=== PATIENT | female | born 1930 ===

== ENCOUNTER 2016-09-15 05:56 | Observation (INO) | payer MEDICARE ==
[2016-09-15 05:57] VITALS: BMI 25.5
--- NOTE | 2016-09-15 06:19 | ED PDOC ---
Lower Extremity Pain/Injury Time Seen by Provider: 09/15/16 06:11 Chief Complaint (Nursing): Lower Extremity Problem/Injury Chief Complaint (Provider): Knee Effusion History Per: Patient History/Exam Limitations: no limitations Additional Complaint(s): Donna Nobles, an 86 year old female, presents to the ED for same day surgery with Dr. Aldana. The patient sates thats he is here for arthrocentesis of the left knee. Past Medical History Reviewed: Historical Data, Nursing Documentation, Vital Signs Vital Signs: Last Vital Signs Temp 98 F 09/15/16 06:12 Pulse 98 H 09/15/16 06:12 Resp 18 09/15/16 06:12 BP 134/64 09/15/16 06:12 Pulse Ox 98 09/15/16 06:12 - Medical History PMH: Anemia, Anxiety, Arthritis (BACK AND KNEES AND R SHOULDER), Asthma, Cardia Arrhythmia, CHF, COPD, Diabetes, HTN, Hypercholesterolemia, TIA - Surgical History Surgical History: Appendectomy, Coronary Stent, Endoscopy, Pacemaker (2015) - Family History Family History: States: Unknown Family Hx - Immunization History Hx Tetanus Toxoid Vaccination: No Hx Influenza Vaccination: Yes Hx Pneumococcal Vaccination: Yes - Home Medications Home Medications: Ambulatory Orders Medication Instructions Recorded Aspirin [Ecotrin] 325 mg PO DAILY 05/28/14 Ranolazine [Ranexa] 500 mg PO BID 05/28/14 Ticagrelor [Brilinta] 90 mg PO QOD6 05/28/14 Insulin Glargine, Recombina 20 unit SC HS #0 unit 05/30/14 [Lantus] Nitroglycerin [Nitrostat SL Tab] 0.6 mg SL Q5MIN PRN 12/26/14 Dexlansoprazole [Dexilant] 60 mg PO DAILY 09/12/16 Furosemide 40 mg PO DAILY 09/12/16 Repaglinide [Prandin] 2 mg PO DAILY 09/12/16 Rosuvastatin Calcium [Crestor] 20 mg PO HS 09/12/16 Sacubitril/Valsartan [Entresto 24 1 tab PO DAILY 09/12/16 mg-26 mg] oxyCODONE/Acetaminophen [Percocet 1 tab PO BID PRN #7 tab 09/12/16 5/325 mg Tab] Acetaminophen [Tylenol 325mg tab] 650 mg PO Q6 PRN #30 tab 09/15/16 Ergocalciferol (Vitamin D2) 50,000 unit PO QWK 09/15/16 [Vitamin D2] Metoprolol Tartrate [Lopressor] 25 mg PO BID 09/15/16 oxyCODONE/Acetaminophen 1/2TAB 0.5 ea PO Q6 PRN #20 tab 09/15/16 [Percocet 5-325 mg HALF TAB] - Allergies Allergies/Adverse Reactions: Allergies Allergy/AdvReac Type Severity Reaction Status Date / Time clopidogrel Allergy Mild SWELLING Verified 09/12/16 11:37 Review of Systems Musculoskeletal: Positive for: Other (arthrocentesis of left knee) Physical Exam - Reviewed Nursing Documentation Reviewed: Yes Vital Signs Reviewed: Yes - Physical Exam Appears: Positive for: Non-toxic, No Acute Distress Extremity: Positive for: Other (Left knee in a knee mobilizer with effusion; nerovascularly intact.). Negative for: Tenderness, Pedal Edema, Deformity, Swelling Neurologic/Psych: Positive for: Alert, Oriented - Laboratory Results Result Diagrams: 09/15/16 07:33 09/15/16 07:33 - ECG O2 Sat by Pulse Oximetry: 98 (RA) Pulse Ox Interpretation: Normal Medical Decision Making Medical Decision Makin Initial Impression: 86 year old female presenting with knee effusion. Awaiting call back from Dr. Aldana. Will transfer care to Dr. Gutierrez. Scribe Attestation Documented by Ade Mobley acting as a scribe for Claudio Watkins MD. Provider Attestation All medical record entries made by the Scribe were at my direction and personally dictated by me. I have reviewed the chart and agree that the record accurately reflects my personal performance of the history, physical exam, medical decision making, and the department course for this patient. I have also personally directed, reviewed, and agree with the discharge instructions and disposition. Disposition - Clinical Impression Clinical Impression: Knee injury, Gait abnormality - Disposition Disposition: Transfer of Care Disposition Time: 07:00 Condition: STABLE Patient Signed Over To: Campos Gutierrez Handoff Comments: pending call back from Dr. Aldana
--- NOTE | 2016-09-15 07:09 | ED PDOC ---
- Laboratory Results Result Diagrams: 09/15/16 07:33 09/15/16 07:33 - ECG O2 Sat by Pulse Oximetry: 98 (RA) Pulse Ox Interpretation: Normal - Progress ED Course And Treament: per dr cross will admit to hospitalist. obtain preop labs and ct scan of le. Condition: Unchanged Disposition Counseled Patient/Family Regarding: Studies Performed, Diagnosis - Clinical Impression Clinical Impression: Knee injury, Gait abnormality - POA Present On Arrival: None - Disposition Disposition: Admitted as In-Patient Disposition Time: 09:30 Condition: STABLE
[2016-09-15 08:28] LABS: ALB/GLOB RATIO 1.1 (1.0-2.1); ALBUMIN 3.8 g/dL (3.5-5.0); CALCIUM 9.8 mg/dL (8.4-10.2)
[2016-09-15 08:31] LABS: BASO # 0.1 K/uL (0.0-0.2); BASO % 1.2 % (0.0-2.0); EOS # 0.2 K/uL (0.0-0.7); EOS % 2.4 % (0.0-4.0); HEMOGLOBIN 11.6 g/dL (12.0-16.0); LYMPH # 0.8 K/uL (1.0-4.3); MEAN CELL VOLUME 90.3 fl (81.0-99.0); MEAN CORPUSCULAR HGB CONC 33.2 g/dL (33.0-37.0); MEAN PLATELET VOLUME 10.4 fl (7.2-11.7); MONO # 0.8 K/uL (0.0-0.8); MONO % 12.2 % (0.0-10.0); NEUT # 4.5 K/uL (1.8-7.0); NEUT % 71.2 % (50.0-75.0); NRBC % 0.1 % (0.0-0.0); RBC 3.87 Mil/uL (3.80-5.20); RED CELL DISTRIBUTION WIDTH 14.5 % (11.5-14.5); WHITE BLOOD COUNT 6.4 K/uL (4.8-10.8)
--- NOTE | 2016-09-15 08:39 | CT ---
PROCEDURE: CT right knee HISTORY: pain COMPARISON: Not available TECHNIQUE: 2.5 mm contiguous axial sections were acquired through the right knee. Sagittal and coronal images were reformatted from the axial scan. FINDINGS: There is no evidence of fracture. There is no lytic or blastic osseous lesion. There is mild tricompartmental osteoarthritis. There are no articular erosions. There is a small joint effusion. This is nonspecific. IMPRESSION: No acute fracture. Mild tricompartmental osteoarthritis.
[2016-09-15 09:00] LABS: PARTIAL THROMBOPLASTIN TIME 22.5 Seconds (25.6-37.1); PROTHROMBIN TIME 11.6 Seconds (9.8-13.1)
--- NOTE | 2016-09-15 10:41 | CP.PCM.HP ---
History of Present Illness - History of Present Illness History of Present Illness: 86 y/o female with PMH cardiomyopathy s/p AICD placement , CAD s/p 1 stent , DM , Dyslipidemia, hypertension , constipation presented to Er complaining of severe pain to her left knee and inability to ambulate. She denies any trauma to her knee. as per patient she has been experiencing progressive knee pain for a long time, more so the last 1 month until last week on Thursday shew could not even put for foot down and ambulate due to severe pain.She was taken to [facility] ER and was told to follow up with Dr. Aldana and was given oxycodone for pain control which made her drowsy. Today she presented to ER with severe left knee pain/. She has extensive cardiac history with stent and AICD placemnet ahnd follows up with a court stenographer. as per patient she hasd stress test done 1 month ago and was good. At present denies any chest pain SOB, palpittaions, PND, orthopnea, urinary symptoms. Has chronic constipation. Last meal was last night but had coffee at 5 AM. She is on blood thinners Brilinta and ASa and and last dose was yesterday Allergies ; Plavix PMH ; cardiomyopathy , CAD s/p 1 stent ,DM , Dyslipidemia, hypertension , constipation Medications: Brilinta, ASA 325 mg po QD, metoprololdexilant, vitamin D, furosemide Nitro SL, ranolazine,prandin,rosuvastatin, entresto Surgery; appendectomy, AICD placement ( January 2014) Fmaily history ; Mother had heart condition and DM Social history ; lives with in [facility], has 2 children, denies any ETOH, smiking or drug abuse, walks with no assist devices ROS ; 14 point review of system negative except above PMD ; Dr. Campuzano Code status ; full Present on Admission - Present on Admission Any Indicators Present on Admission: No Review of Systems - Review of Systems All systems: reviewed and no additional remarkable complaints except Past Patient History - Infectious Disease Hx of Infectious Diseases: None - Tetanus Immunizations Tetanus Immunization: Unknown - Past Medical History & Family History Past Medical History?: Yes - Past Social History Smoking Status: Never Smoked Chewing Tobacco Use: No Cigar Use: No Alcohol: None Drugs: Denies Home Situation {Lives}: With Family Domestic Violence: Negative - CARDIAC Hx Cardiac Disorders: Yes Hx Congestive Heart Failure: Yes Hx Hypercholesterolemia: Yes Hx Hypertension: Yes - PULMONARY Hx Respiratory Disorders: Yes - NEUROLOGICAL Hx Neurological Disorder: No Hx Transient Ischemic Attacks (TIA): Yes - HEENT Hx HEENT Problems: Yes - ENDOCRINE/METABOLIC Hx Endocrine Disorders: Yes - HEMATOLOGICAL/ONCOLOGICAL Hx Anemia: Yes - MUSCULOSKELETAL/RHEUMATOLOGICAL Hx Arthritis: Yes (BACK AND KNEES AND R SHOULDER) - PSYCHIATRIC Hx Anxiety: Yes - SURGICAL HISTORY Hx Appendectomy: Yes Hx Coronary Stent: Yes - ANESTHESIA Hx Anesthesia: Yes Hx Anesthesia Reactions: No Hx Malignant Hyperthermia: No Meds Allergies/Adverse Reactions: Allergies Allergy/AdvReac Type Severity Reaction Status Date / Time clopidogrel Allergy Mild SWELLING Verified 09/12/16 11:37 Physical Exam - Constitutional Appears: Non-toxic, No Acute Distress - Head Exam Head Exam: ATRAUMATIC, NORMAL INSPECTION, NORMOCEPHALIC - Eye Exam Eye Exam: EOMI, Normal appearance, PERRL Pupil Exam: NORMAL ACCOMODATION - ENT Exam ENT Exam: Mucous Membranes Moist, Normal Exam - Neck Exam Neck exam: Positive for: Full Rom, Normal Inspection - Respiratory Exam Respiratory Exam: Clear to Auscultation Bilateral, NORMAL BREATHING PATTERN. absent: Rales, Rhonchi, Wheezes - Cardiovascular Exam Cardiovascular Exam: REGULAR RHYTHM, RRR, +S1, +S2. absent: JVD - GI/Abdominal Exam GI & Abdominal Exam: Normal Bowel Sounds, Soft. absent: Distended, Guarding, Rebound, Tenderness - Rectal Exam Rectal Exam: Deferred - Extremities Exam Extremities exam: Positive for: normal capillary refill, normal inspection, pedal pulses present. Negative for: calf tenderness, pedal edema Additional comments: left knee warmer to touch than right knee with minimal effusion - Back Exam Back exam: NORMAL INSPECTION - Neurological Exam Neurological exam: Alert, CN II-XII Intact, Oriented x3, Reflexes Normal - Psychiatric Exam Psychiatric exam: Normal Affect, Normal Mood - Skin Skin Exam: Dry, Intact, Normal Color, Warm Results - Vital Signs Recent Vital Signs: Last Vital Signs Temp 98.5 F 09/15/16 10:23 Pulse 90 09/15/16 10:23 Resp 18 09/15/16 10:23 BP 148/73 09/15/16 10:23 Pulse Ox 99 09/15/16 10:23 - Labs Result Diagrams: 09/15/16 07:33 09/15/16 07:33 Assessment & Plan - Assessment and Plan (Free Text) Assessment: 86 y/o female with PMH cardiomyopathy s/p AICD placement , CAD s/p 1 stent , DM , Dyslipidemia, hypertension , constipation presented to Er complaining of severe pain to her left knee and inability to ambulate. She denies any trauma to her knee. as per patient she has been experiencing progressive knee pain for a long time, more so the last 1 month until last week on Thursday shew could not even put for foot down and ambulate due to severe pain.She was taken to [facility] ER and was told to follow up with Dr. Aldana and was given oxycodone for pain control which made her drowsy. Today she presented to ER with severe left knee pain/. She has extensive cardiac history with stent and AICD placemnet ahnd follows up with a court stenographer. as per patient she hasd stress test done 1 month ago and was good. At present denies any chest pain SOB, palpittaions, PND, orthopnea, urinary symptoms. Has chronic constipation. Last meal was last night but had coffee at 5 AM. She is on blood thinners Brilinta and ASa and and last dose was yesterday 1.Intractable left knee pain secondary to OA will place patient under observation in med/surg Ortho consult with Dr. Aldana CT knee showed No acute fracture. Mild tricompartmental osteoarthritis. pain mangement Keep NPO for now Patient is on Brilinta and ASa 325 mg po daily with last dose yesterday. Orthopedist Dr. Aldana is aware.Family informed of risks of bleeding while on blood thinners Will get in touch with her court stenographer Dr. Campuzano [phone] to get stress test results that was performed 1 month ago for preop clearance 2. Cardiomyopathy/ CAD s/p AICD Resume her home meds Metoprolol, nitro SL, Ensestro,Lasix hold ASA and Brilinta for now Will call her court stenographer for stress trest results 3. Hypertension resume home meds 4. DM Keep NPO start IVF D%NS Accucfhecks with insulin coverage Hold lantus and prandin for now 5. Dyslipidemia on rosuvastatin 6. Constipation colace 7. BERNICE on CKD most likely patient has baseline CKD start IVF 8.DVt prophylaxis patient is on Brilinta ( last dose yesterday) hold any anticoagulation for now SCD
[2016-09-15] MEDS ORDERED: Dextrose 5%/0.9% NS 1,000 ML IV ONE (11:07)
[2016-09-15] MEDS ORDERED: NITROGLYCERIN 0.6 MG SL PRN (11:13)
[2016-09-15] MEDS ORDERED: Ergocalciferol 50,000 Intl Units Cap PO SCH (11:15)
[2016-09-15] MEDS: Insulin Regular 100 units/ml SC SCH ×3 (12:30→22:37)
--- NOTE | 2016-09-15 13:26 | CARD ---
APPROVED REPORT EKG Measurement Heart [id number] <Conclusion> Normal sinus rhythm Left axis deviation Left bundle branch block Abnormal ECG
--- NOTE | 2016-09-15 14:44 | CP.PCM.CON ---
History of Present Illness - History of Present Illness History of Present Illness: THE PATIENT IS AN 86 YEAR OLD FEMALE WHI IS ADMITTED FOR OA OF THE LEFT KNEE WITH SEVERE PAIN, SWELLING AND INABILITY TO WALK THAT GOT PROGRESSIVELY WORSE OVER THE LAST MONTH. SHE DENIES TRAUMA. SHE CAME TO THE ER TODAY AND WAS ADMITTED FOR SURGERY. SHE HAS A LONG PAST MEDICAL HISTORY THAT INCLUDES CAD, CARDIOMYOPATHY, HYPERTENSION, HYPERLIPIDEMIA AND TYPE 2 DM. SHE HAD A CORONARY STENT INSERTED AND HAS SIGNIFICANT LV HYPOKINESIA AND HAD AN AICD INSERTED. SHE HAD A STRESS ECHO LAST MONTH BY HER LOCAL MARKETING REPORTING ANALYST AND IT WAS REPORTED TO BE GOOD. SHE IS PRESENTLY CHEST PAIN FREE. CARDIOLOGY WAS ASKED TO SEE HER PREOPERATIVELY. SHE IS ON ASPIRIN AND BRILINTA BUT DID NOT TAKE THEM SINCE YESTERDAY. Past Patient History - Infectious Disease Hx of Infectious Diseases: None - Tetanus Immunizations Tetanus Immunization: Unknown - Past Medical History & Family History Past Medical History?: Yes - Past Social History Smoking Status: Never Smoked - CARDIAC Hx Cardiac Disorders: Yes Hx Congestive Heart Failure: Yes Hx Hypercholesterolemia: Yes Hx Hypertension: Yes - PULMONARY Hx Respiratory Disorders: Yes - NEUROLOGICAL Hx Neurological Disorder: No Hx Transient Ischemic Attacks (TIA): Yes - HEENT Hx HEENT Problems: Yes - ENDOCRINE/METABOLIC Hx Endocrine Disorders: Yes - HEMATOLOGICAL/ONCOLOGICAL Hx Anemia: Yes - MUSCULOSKELETAL/RHEUMATOLOGICAL Hx Falls: No - PSYCHIATRIC Hx Substance Use: No - SURGICAL HISTORY Hx Appendectomy: Yes Hx Coronary Stent: Yes - ANESTHESIA Hx Anesthesia: Yes Hx Anesthesia Reactions: No Hx Malignant Hyperthermia: No Meds Allergies/Adverse Reactions: Allergies Allergy/AdvReac Type Severity Reaction Status Date / Time clopidogrel Allergy Mild SWELLING Verified 09/12/16 11:37 - Medications Medications: Current Medications Acetaminophen (Tylenol 325mg Tab) 650 mg PO Q6 PRN PRN Reason: Pain, Mild (1-3) Docusate Sodium (Colace) 100 mg PO BID ROXY Ergocalciferol (Drisdol 50,000 Intl Units Cap) 1 cap PO QWK ROXY Furosemide (Lasix) 40 mg PO DAILY ROXY Home Med (Nitroglycerin [Nitrostat Sl Tab]) 0.6 mg SL Q5MIN PRN PRN Reason: CHEST PAIN Dextrose/Sodium Chloride (Dextrose 5%/0.9% Ns 1000 Ml) 1,000 mls @ 60 mls/hr IV .[id number] ONE Stop: 09/16/16 03:46 Last Admin: 09/15/16 12:00 Dose: 60 mls/hr Insulin Human Regular (Humulin R) 0 units SC ACHS ROXY PRN Reason: Protocol Last Admin: 09/15/16 12:30 Dose: Not Given Ketorolac Tromethamine (Toradol) 15 mg IVP Q6 PRN PRN Reason: Pain, moderate (4-7) Ketorolac Tromethamine (Toradol) 30 mg IVP Q6 PRN PRN Reason: Pain, severe (8-10) Metoprolol Tartrate (Lopressor) 25 mg PO BID ROXY Ondansetron HCl (Zofran Inj) 4 mg IVP Q6 PRN PRN Reason: Nausea/Vomiting Pantoprazole Sodium (Protonix Ec Tab) 40 mg PO DAILY ROXY Repaglinide (Prandin) 2 mg PO DAILY ROXY Physical Exam - Respiratory Exam Respiratory Exam: Clear to Auscultation Bilateral - Cardiovascular Exam Cardiovascular Exam: REGULAR RHYTHM, +S1, +S2 - Extremities Exam Additional comments: LEFT KNEE SWOLLEN AND WARM - Additional Findings Additional findings: EKG NSR, LBBB Results - Vital Signs Recent Vital Signs: Last Vital Signs Temp 97.6 F 09/15/16 12:00 Pulse 90 09/15/16 12:00 Resp 18 09/15/16 12:00 BP 155/78 H 09/15/16 12:00 Pulse Ox 98 09/15/16 12:00 - Labs Result Diagrams: 09/15/16 07:33 09/15/16 07:33 Labs: Laboratory Results - last 24 hr 09/15/16 11:06 POC Glucose (mg/dL) 160 H Assessment & Plan - Assessment and Plan (Free Text) Assessment: PAIN LEFT KNEE OA CAD CARDIOMYOPATHY HYPERTENSION HYPERLIPIDEMIA DM Plan: THE PATIENT IS CLEARED FOR SURGERY BUT THERE IS A MODERATE RISK DUE TO HER CARDIOMYOPATHY THE WAS TOLD OF THE RISK DUE TO HER CARDIAC DISEASE AND HE UNDERSTANDS AND AGREES TO PROCEED.
--- NOTE | 2016-09-15 15:31 | RAD ---
HISTORY: pre op COMPARISON: No prior. FINDINGS: LUNGS: Bilateral interstitial changes. PLEURA: No significant pleural effusion identified, no pneumothorax apparent. CARDIOVASCULAR: Cardiomegaly. Pacemaker and leads in place. OSSEOUS STRUCTURES: No significant abnormalities. VISUALIZED UPPER ABDOMEN: Normal. OTHER FINDINGS: None. IMPRESSION: Bilateral nonspecific interstitial changes.
[2016-09-15] MEDS ORDERED: Morphine 1 mg/ml preservative-free Inj(Duramorph) ONE (15:42)
[2016-09-15] MEDS ORDERED: Thrombin Topical 5,000 IU Spray Kit ONE (15:42)
[2016-09-15] MEDS ORDERED: Bacitracin Ointment 30 GM TUBE ONE (15:42)
[2016-09-15] MEDS ORDERED: Absorbable Gelatin Sponge Size 100 ONE (15:42)
[2016-09-15] MEDS ORDERED: Phenylephrine 10 mg/ml Inj ONE (16:12)
[2016-09-15] MEDS ORDERED: Etomidate 20 mg/10ml Inj IV ONE (16:12)
[2016-09-15] MEDS ORDERED: Sodium Chloride 0.9% 500 ML IV ONE (16:15)
[2016-09-15] MEDS ORDERED: methylPREDNISolone Depo 80 mg/ml Inj ONE (16:43)
[2016-09-15] MEDS ORDERED: Lidocaine 1% Inj (20ml) ONE (16:43)
[2016-09-15] MEDS ORDERED: MethylPREDNISolone Depo 40 mg/ml Inj ONE (16:43)
[2016-09-15] MEDS ORDERED: Bupivacaine 0.5% Inj(30mL) ONE (16:43)
[2016-09-15] MEDS ORDERED: Lidocaine 2% w Epi 1:100,000 Inj IJ ONE (16:44)
[2016-09-15] MEDS ORDERED: Lidocaine 1% Inj (20ml) IJ ONE (16:53)
[2016-09-15] MEDS ORDERED: Bupivacaine 0.5% 50 ML IJ ONE (17:25)
[2016-09-15] MEDS ORDERED: MethylPREDNISolone Depo 40 mg/ml Inj INJ ONE (17:25)
--- NOTE | 2016-09-15 17:30 | PCM.SURG1 ---
Surgeon's Initial Post Op Note - Surgeon's Notes Surgeon: Jovan [employer] Curator: LIBRADO Ryan Type of Anesthesia: General LMA Anesthesia Administered By: dR Fontenot Pre-Operative Diagnosis: lKNEE EFFUSION/TRICOMPARTMENTAL o/a l KNEE Operative Findings: TEAR MEDIAL MENISCUS l kNEE/ TEAR LATERAL MENISCUS l KNEE. TRICOMPARTMENTAL SYNOVITIS. L knee effusion Post-Operative Diagnosis: as above Operation Performed: arthroscopic partial medial/lateral meniscectomy. arthroscopic tricompartmental synovectomy. intraarticular injection Specimen/Specimens Removed: synovium/cartilage Estimated Blood Loss: EBL {In ML}: 5 Blood Products Given: N/A Drains Used: No Drains Post-Op Condition: Good Date of Surgery/Procedure: 09/15/16 Time of Surgery/Procedure: 16:55 (time iun room 16:15)
[2016-09-15] MEDS ORDERED: HYDROmorphone 0.5 mg/0.5 ml ISec IVP PRN (17:41)
[2016-09-15] MEDS ORDERED: Sodium Chloride 0.9% 1,000 ML IV SCH (17:45)
[2016-09-15 17:50] LABS: FLUID TYPE SYNOVIAL FLUID
[2016-09-15 17:51] LABS: FLUID TYPE SYNOVIAL FLUID
[2016-09-15 17:56] LABS: FLUID TYPE SYNOVIAL FLUID
[2016-09-15 18:12] LABS: SF GROSS APPEARANCE CLOUDY (CLEAR)
[2016-09-15 18:13] LABS: SYNOVIAL FLUID COMMENT LIGHT YELLOW
[2016-09-15 18:32] LABS: SYNOVIAL FLUID MONO/MACROPHAGE 11 % (0-0)
--- NOTE | 2016-09-15 21:39 | CP.PCM.DIS ---
Provider - Provider Date of Admission: 09/15/16 09:10 Attending physician: Bhargavi Vilchis MD Primary care physician: Elizabet Aly MD Consults: cardiology consult Ortho consult Time Spent in preparation of Discharge (in minutes): 20 Hospital Course - Lab Results Lab Results: Micro Results 09/15/16 17:25 Knee - Left Gram Stain - Final 09/15/16 17:25 Knee - Left Gram Stain - Final 09/15/16 17:25 Knee - Left Gram Stain - Final 09/15/16 17:25 Knee - Left Gram Stain - Final 09/15/16 17:25 Knee - Left Gram Stain - Final 09/15/16 17:25 Knee - Left Gram Stain - Final 09/15/16 17:25 Knee - Left Gram Stain - Final 09/15/16 17:25 Knee - Left Gram Stain - Final Most Recent Lab Values WBC 6.4 K/uL (4.8-10.8) 09/15/16 07:33 RBC 3.87 Mil/uL (3.80-5.20) 09/15/16 07:33 Hgb 11.6 g/dL (12.0-16.0) L 09/15/16 07:33 Hct 34.9 % (34.0-47.0) 09/15/16 07:33 MCV 90.3 fl (81.0-99.0) 09/15/16 07:33 MCH 30.0 pg (27.0-31.0) 09/15/16 07:33 MCHC 33.2 g/dL (33.0-37.0) 09/15/16 07:33 RDW 14.5 % (11.5-14.5) 09/15/16 07:33 Plt Count 130 K/uL (130-400) 09/15/16 07:33 MPV 10.4 fl (7.2-11.7) 09/15/16 07:33 Neut % (Auto) 71.2 % (50.0-75.0) 09/15/16 07:33 Lymph % (Auto) 13.0 % (20.0-40.0) L 09/15/16 07:33 Hall % (Auto) 12.2 % (0.0-10.0) H 09/15/16 07:33 Eos % (Auto) 2.4 % (0.0-4.0) 09/15/16 07:33 Baso % (Auto) 1.2 % (0.0-2.0) 09/15/16 07:33 Neut # 4.5 K/uL (1.8-7.0) 09/15/16 07:33 Lymph # 0.8 K/uL (1.0-4.3) L 09/15/16 07:33 Hall # 0.8 K/uL (0.0-0.8) 09/15/16 07:33 Eos # 0.2 K/uL (0.0-0.7) 09/15/16 07:33 Baso # 0.1 K/uL (0.0-0.2) 09/15/16 07:33 PT 11.6 Seconds (9.8-13.1) 09/15/16 07:33 INR 1.0 (0.9-1.2) 09/15/16 07:33 APTT 22.5 Seconds (25.6-37.1) L 09/15/16 07:33 Sodium 139 mmol/l (132-148) 09/15/16 07:33 Potassium 4.6 MMOL/L (3.6-5.0) 09/15/16 07:33 Chloride 107 mmol/L (98-107) 09/15/16 07:33 Carbon Dioxide 24 mmol/L (22-30) 09/15/16 07:33 Anion Gap 13 (10-20) 09/15/16 07:33 BUN 28 mg/dl (7-17) H 09/15/16 07:33 Creatinine 1.4 mg/dL (0.7-1.2) H 09/15/16 07:33 Est GFR ( Amer) 43 09/15/16 07:33 Est GFR (Non-Af Amer) 36 09/15/16 07:33 POC Glucose (mg/dL) 147 mg/dL (65-110) H 09/15/16 17:43 Random Glucose 155 mg/dL (65-105) H 09/15/16 07:33 Calcium 9.8 mg/dL (8.4-10.2) 09/15/16 07:33 Total Bilirubin 0.5 mg/dl (0.2-1.3) 09/15/16 07:33 AST 28 U/L (14-36) 09/15/16 07:33 ALT 23 U/L (9-52) 09/15/16 07:33 Alkaline Phosphatase 67 U/L (38-126) 09/15/16 07:33 Total Protein 7.2 G/DL (6.3-8.2) 09/15/16 07:33 Albumin 3.8 g/dL (3.5-5.0) 09/15/16 07:33 Globulin 3.4 gm/dL (2.2-3.9) 09/15/16 07:33 Albumin/Globulin Ratio 1.1 (1.0-2.1) 09/15/16 07:33 Fluid Type Synovial fluid 09/15/16 17:25 Synovial WBC 139.0 /mm3 (0.0-150.0) 09/15/16 17:25 Synovial RBC 701.0 /mm3 (0.0-0.0) H 09/15/16 17:25 Synovial Neutrophils 67.0 % (0-0) H 09/15/16 17:25 Synovial Lymphocytes 22.0 % (0-0) H 09/15/16 17:25 Synov Monos/Macrophage 11 % (0-0) H 09/15/16 17:25 Synovial Fluid Comment Light yellow 09/15/16 17:25 Blood Type A POSITIVE 09/15/16 07:33 Antibody Screen Negative 09/15/16 07:33 BBK History Checked Patient has bt 09/15/16 07:33 - Hospital Course Hospital Course: 86 y/o female with PMH cardiomyopathy s/p AICD placement , CAD s/p 1 stent , DM , Dyslipidemia, hypertension , constipation presented to Er complaining of severe pain to her left knee and inability to ambulate. She denies any trauma to her knee. as per patient she has been experiencing progressive knee pain for a long time, more so the last 1 month until last week on Thursday shew could not even put for foot down and ambulate due to severe pain.She was taken to [facility] ER and was told to follow up with Dr. Aldana and was given oxycodone for pain control which made her drowsy. Today she presented to ER with severe left knee pain. She has extensive cardiac history with stent and AICD placemnet and follows up with a camp housekeeper. As per patient she had stress test done 1 month ago and was good. At present denies any chest pain SOB, palpittaions, PND, orthopnea, urinary symptoms. Has chronic constipation. Last meal was last night but had coffee at 5 AM. She is on blood thinners Brilinta and ASa and and last dose was yesterday Echo nuclear test report was faxed by josé miguel camp housekeeper deacon and showed severe LV dysfunction with hypokineiss. Cardiology was consulted for preop clearance and patient was cleared for surgery CT left knee showed tricompartmental DJD . Ortho was consulted and decided to take patient to OR for arthroscopy. Orthopedist informed about patient being on blood thinners. Post procedure she was monitored on rexcovery room and telemetry and doing well Awake , alert oriented , hemodynamically stable, pain controlled Will discharge alberto weber family We[employer] bearing as tolerated with walker to LLE Follow up with Dr. Aldana in his office in 1 week Continue pain mangement Percoset PRN or Tylenol PRN 1.Intractable left knee pain secondary to OA s/p arthroscopy 2. Cardiomyopathy/ CAD s/p AICD Resume her home meds Metoprolol, nitro SL, Ensestro,Lasix ASA and Brilinta 3. Hypertension resume home meds 4. DM continue home meds on discharge lantus and prandin 5. Dyslipidemia on rosuvastatin 6. Constipation 7. BERNICE on CKD most likely patient has baseline CKD follow up with her PMD 8.DVt prophylaxis SCD Discharge Exam - Head Exam Head Exam: ATRAUMATIC, NORMAL INSPECTION, NORMOCEPHALIC - Eye Exam Eye Exam: EOMI, Normal appearance, PERRL Pupil Exam: NORMAL ACCOMODATION - ENT Exam ENT Exam: Mucous Membranes Moist, Normal Exam - Neck Exam Neck exam: Full Rom, Normal Inspection - Respiratory Exam Respiratory Exam: Clear to PA & Lateral, NORMAL BREATHING PATTERN. absent: Rales, Rhonchi, Wheezes - Cardiovascular Exam Cardiovascular Exam: REGULAR RHYTHM, RRR, +S1, +S2. absent: JVD - GI/Abdominal Exam GI & Abdominal Exam: Normal Bowel Sounds, Soft. absent: Guarding, Rebound, Tenderness - Rectal Exam Rectal Exam: Deferred - Extremities Exam Extremities exam: normal capillary refill, normal inspection, pedal pulses present Additional comments: left knee beba bandage in place pulses intact - Back Exam Back exam: NORMAL INSPECTION - Neurological Exam Neurological exam: Alert, CN II-XII Intact, Oriented x3 - Psychiatric Exam Psychiatric exam: Normal Affect - Skin Skin Exam: Dry, Normal Color, Warm Discharge Plan - Discharge Medications Prescriptions: Acetaminophen [Tylenol 325mg tab] 650 mg PO Q6 PRN #30 tab PRN Reason: Pain, Mild (1-3) oxyCODONE/Acetaminophen 1/2TAB [Percocet 5-325 mg HALF TAB] 0.5 ea PO Q6 PRN # 20 tab PRN Reason: Pain, Severe (8-10) - Follow Up Plan Condition: STABLE Disposition: HOME/ ROUTINE Patient education suggested?: Yes Instructions: Operative Knee Arthroscopy (DC) Additional Instructions: weight bearing as tolerated to LLE with walker follow up with Dr. Aldana in 1week Referrals: Elizabet Aly MD [Primary Care Provider] - Bunny Aldana III, MD [Staff Provider] -
[2016-09-16 06:20] LABS: BASO % 0.3 % (0.0-2.0); EOS % 0.3 % (0.0-4.0); HEMOGLOBIN 11.5 g/dL (12.0-16.0); LYMPH # 0.5 K/uL (1.0-4.3); LYMPH % 6.6 % (20.0-40.0); MEAN CELL VOLUME 91.3 fl (81.0-99.0); MEAN CORPUSCULAR HEMOGLOBIN 29.6 pg (27.0-31.0); MEAN CORPUSCULAR HGB CONC 32.4 g/dL (33.0-37.0); MEAN PLATELET VOLUME 10.1 fl (7.2-11.7); MONO # 0.3 K/uL (0.0-0.8); MONO % 4.3 % (0.0-10.0); NEUT # 6.4 K/uL (1.8-7.0); NEUT % 88.5 % (50.0-75.0); PLATELET COUNT 132 K/uL (130-400); RBC 3.89 Mil/uL (3.80-5.20); RED CELL DISTRIBUTION WIDTH 14.8 % (11.5-14.5); WHITE BLOOD COUNT 7.3 K/uL (4.8-10.8)
[2016-09-16 06:25] LABS: CALCIUM 9.3 mg/dL (8.4-10.2)
[2016-09-16] MEDS: Insulin Regular 100 units/ml SC SCH ×2 (06:30→12:24)
--- NOTE | 2016-09-16 08:14 | CP.PCM.PN ---
Subjective - Date & Time of Evaluation Date of Evaluation: 09/16/16 Time of Evaluation: 08:00 - Subjective Subjective: FEELS GOOD NO CHEST PAIN OR SOB Objective - Vital Signs/Intake and Output Vital Signs (last 24 hours): Temp Pulse Resp BP Pulse Ox 97.9 F 88 19 138/69 95 09/16/16 04:56 09/16/16 04:56 09/16/16 04:56 09/16/16 04:56 09/16/16 04:56 - Medications Medications: Current Medications Acetaminophen (Tylenol 325mg Tab) 650 mg PO Q6 PRN PRN Reason: Pain, Mild (1-3) Docusate Sodium (Colace) 100 mg PO BID [facility] Ergocalciferol (Drisdol 50,000 Intl Units Cap) 1 cap PO QWK [facility] Furosemide (Lasix) 40 mg PO DAILY [facility] Home Med (Nitroglycerin [Nitrostat Sl Tab]) 0.6 mg SL Q5MIN PRN PRN Reason: CHEST PAIN Insulin Human Regular (Humulin R) 0 units SC ACHS [facility] PRN Reason: Protocol Last Admin: 09/16/16 06:30 Dose: 1 u Ketorolac Tromethamine (Toradol) 15 mg IVP Q6 PRN PRN Reason: Pain, moderate (4-7) Ketorolac Tromethamine (Toradol) 30 mg IVP Q6 PRN PRN Reason: Pain, severe (8-10) Metoprolol Tartrate (Lopressor) 25 mg PO BID [facility] Last Admin: 09/15/16 17:00 Dose: Not Given Ondansetron HCl (Zofran Inj) 4 mg IVP Q6 PRN PRN Reason: Nausea/Vomiting Pantoprazole Sodium (Protonix Ec Tab) 40 mg PO DAILY [facility] Repaglinide (Prandin) 2 mg PO DAILY [facility] - Labs Labs: 09/16/16 05:30 09/16/16 05:30 PT 11.6 Seconds (9.8-13.1) 09/15/16 07:33 INR 1.0 (0.9-1.2) 09/15/16 07:33 APTT 22.5 Seconds (25.6-37.1) L 09/15/16 07:33 - Respiratory Exam Respiratory Exam: Clear to Ausculation Bilateral - Cardiovascular Exam Cardiovascular Exam: REGULAR RHYTHM, +S1, +S2 - Extremities Exam Additional comments: LEFT KNEE WITH SURGICAL DRESSINGS - Additional Findings Additional findings: LEFT KNEE OPERATIVE REPORT REVIEWED Assessment and Plan - Assessment and Plan (Free Text) Assessment: S/P LEFT KNEE SURGERY CAD WITH CARDIOMYOPATHY HYPERTENSION HYPERLIPIDEMIA TYPE 2 DM Plan: CONTINUE METOPROLOL FOR PROBABLE DISCHARGE TODAY FU WITH DR NIA BENJAMIN WITH HER LOCAL [employer]
[2016-09-16 08:42] VITALS: TEMP 97.6; O2SAT 97
[2016-09-16] MEDS ORDERED: Pantoprazole 40 mg EC Tab PO SCH (09:00)
[2016-09-16 11:29] LABS: BANDS 1 % (0-2); BASOPHIL 1 % (0-2); LYMPHOCYTE 9 % (20-50); MONOCYTE 6 % (0-10); NEUTROPHIL 83 % (42-75); PLATELET ESTIMATE NORMAL (NORMAL); TOTAL CELLS COUNTED 100
[2016-09-16 11:30] LABS: ANISOCYTOSIS SLIGHT; HYPOCHROMIC SLIGHT
[2016-09-16 11:31] LABS: LARGE PLATELETS PRESENT; PLATELET CLUMPS PRESENT
[2016-09-16 12:27] VITALS: BP 128/72; PULSE 90; RESP 18
--- NOTE | 2016-09-17 09:41 | OP ---
PROCEDURE DATE: 09/15/2016 PREOPERATIVE DIAGNOSES: 1. Left knee effusion. 2. Osteoarthritis, left knee. POSTOPERATIVE DIAGNOSES: 1. Complex tear, medial meniscus tear, lateral meniscus. 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 4. Left knee effusion. PROCEDURE: Surgical arthroscopy left knee, partial arthroscopic medial meniscectomy, surgical arthroscopy, partial arthroscopic lateral meniscectomy, arthroscopy left knee, partial tricompartmental synovectomy, intraarticular injection. SURGEON: Dr. Bunny Aldana. GROCERY SUPERVISOR: Summer Ponce, certified registered nursing. TYPE OF ANESTHESIA: General endotracheal anesthesia. ANESTHESIA ADMINISTERED BY: Dr. Ocampo. OPERATIVE INDICATIONS: Lindsey Nobles is an 86-year-old woman who presents with marked contusion pain, and restricted range of motion of the left knee to [facility] ER. The patient was admitted as an emergency. The patient cannot ambulate and was having severe discomfort. There was no evidence of sepsis. Pros, cons, risks, and benefits of surgical arthroscopy were discussed, possibility of mechanical failure, infection, thromboembolic disease secondary or tertiary surgery discussed. The concept that in my opinion, the patient will require a knee replacement in the future was discussed with the patient and her . It was decided at this point, we will do a lavage and surgical arthroscopy of the left knee. DESCRIPTION OF PROCEDURE: After having obtained informed consent from the patient and her through the counseling and electric motor tester assemblerUmm. After the satisfactory induction of the anesthetic and after having identified the side, site and procedure in a critical pause/timeout, the left lower extremity was prepped and free-draped in the usual fashion for lower extremity surgery. A tourniquet had been applied, but not yet inflated. After exsanguinating the limb with 6-inch Esmarch bandage, the tourniquet which had been applied was inflated to 350 mmHg. The joint was insufflated with 10 mL of 1% Lidocaine without epinephrine. Using #11 blade from an anterolateral portal followed by spreading, followed by insertion of blunt trocar, the arthroscope was introduced. With the arthroscope anterolaterally triangulation was accomplished using #18 gauge spinal needle at a 0.1 fingerbreadth medial to the inferior fold of the patella. Using #11 blade followed by spreading, insertion of the blunt trocar, the arthroscope was introduced. With the arthroscope anterolaterally, there was found to be a marked effusion, which was drained. There was no evidence of sepsis, fluid was sent to the lab for stat Gram stain, number of white cells per high-power field, and also cultures. With the arthroscope anterolaterally with the surgeon exerting a gentle valgus stress, a careful partial tricompartmental synovectomy was accomplished with improved visualization and tissue. Careful partial tricompartmental synovectomy having been accomplished. Bleeding points were controlled with the [employer]Care wand. With the arthroscope anteromedially, careful partial tricompartmental synovectomy was accomplished, bleeding points were controlled. With the arthroscope anterolaterally, the surgeon exerting a gentle valgus stress, there was found to be a tear of the inner free edge of the medial meniscus. With arthroscope anterolaterally using the arthroscopic shaver, there was found to be chondrocalcinosis and a complex third medial meniscus. Using a straight biting basket forceps, and a side biting basket forceps, a partial medial meniscectomy was accomplished. Excision of chondrocalcinosis was accomplished as well. The inner free edge was smoothen using the [place] surface on. With the arthroscope anterolaterally, the knee in figure-4 position, lateral compartment was entered. There was found to be a tear of the lateral meniscus at the inner free edge. There was chondrocalcinosis as well. Using a combination of the 3.4 mm [employer]s suction punch and the arthroscopic shaver, a partial lateral meniscectomy was accomplished. With the arthroscope anterolaterally, partial lateral meniscectomy having been accomplished, careful partial tricompartmental synovectomy was completed, bleeding points were controlled with the [place] surface on. Wound was thoroughly irrigated. There was found to be complete eburnation of bone and severe tricompartmental osteoarthritis. Closure was in layers with interrupted Vicryl and Nylon. Again it have been discussed with the patient that replacement arthroplasty would be necessary in the future with the patient and her . [place] compression dressing was applied. Bunny Aldana MD
== END 2016-09-16 12:18 | disposition home health service (06) ==
LOC: H.ER 05:56 → H.ERHOLD 09:10 → INTOOBSV 09:10 → H.TEL 10:38
PROVIDERS: ADMIT Hospitalist; ATTEND Hospitalist
DX: S83.232A Complex tear of medial meniscus, current injury, left knee, initial encounter (principal); S83.272A Complex tear of lateral meniscus, current injury, left knee, initial encounter; M65.862 Other synovitis and tenosynovitis, left lower leg; M17.12 Unilateral primary osteoarthritis, left knee; M25.462 Effusion, left knee; I13.0 Hypertensive heart and chronic kidney disease with heart failure and stage 1 through stage 4 chronic kidney disease, or unspecified chronic kidney disease; E11.22 Type 2 diabetes mellitus with diabetic chronic kidney disease; I50.9 Heart failure, unspecified; N18.9 Chronic kidney disease, unspecified; E78.5 Hyperlipidemia, unspecified; E78.00 Pure hypercholesterolemia, unspecified; I25.10 Atherosclerotic heart disease of native coronary artery without angina pectoris; I42.9 Cardiomyopathy, unspecified; J44.9 Chronic obstructive pulmonary disease, unspecified; K59.09 Other constipation; Z95.0 Presence of cardiac pacemaker; Z95.810 Presence of automatic (implantable) cardiac defibrillator; Z95.5 Presence of coronary angioplasty implant and graft; Z86.73 Personal history of transient ischemic attack (TIA), and cerebral infarction without residual deficits; X58.XXXA Exposure to other specified factors, initial encounter; Y92.9 Unspecified place or not applicable
CPT/HCPCS: 29876; 29880; 36415; 71010; 73700; 80048; 80053; 82948; 85025; 85610; 85730; 86850; 86900; 87015; 87070; 87075; 87101; 87116; 87206; 89051; 93005; 99285; G0378; J0171; J0690; J1030; J2270; J2370; J3010; J7030; J7040; J7042